=== PATIENT | male | born 1950 | race Asian ===

== ENCOUNTER 2019-04-22 18:48 | Emergency (ER) | payer OTHER ==
[2019-04-22 18:53] VITALS: BP 150/79; PULSE 75; TEMP 98.2; BMI 31.6
[2019-04-22] MEDS ORDERED: ACETAMINOPHEN 325 MG TABLET (FP) PO ONE (19:52)
[2019-04-22] MEDS ORDERED: ACETAMINOPHEN 325 MG TABLET (FP) ONE (19:55)
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
== END 2019-04-22 22:37 | disposition home or self-care (01) ==
LOC: JERFT 18:48
DX: M79.605 Pain in left leg (principal); M25.552 Pain in left hip; M25.562 Pain in left knee; M25.512 Pain in left shoulder; V43.52XA Car driver injured in collision with other type car in traffic accident, initial encounter; Y92.414 Local residential or business street as the place of occurrence of the external cause; Y93.89 Activity, other specified; Y99.8 Other external cause status; I10 Essential (primary) hypertension; E11.9 Type 2 diabetes mellitus without complications; Z79.84 Long term (current) use of oral hypoglycemic drugs
CPT/HCPCS: 73030-TC-LT-FY; 73523-TC-FY; 73552-TC-LT-FY; 99282-25